=== PATIENT | male | born 1975 | race African-American/Black ===

== ENCOUNTER 2020-02-07 07:14 | Emergency (ER) | payer BC ==
[~2020-02-07] VITALS: Ht 167.6 cm; Wt 81.7 kg
[~2020-02-07 07:14] MED LIST: NOHOMEMEDICATIONS; PERCOCET 5-3251 EACH PO; PHENERGAN 25 MG25 M1 PO; PREDNISONE 20 M20 M1 PO; TAMSULOSIN HCL0.4 MG PO; VENTOLIN HFA 1818 GM INH
[2020-02-07 07:44] LABS: URINE BILIRUBIN NEGATIVE (Negative); URINE BLOOD 3+ (Negative); URINE CLARITY CLEAR; URINE COLOR YELLOW; URINE GLUCOSE-RANDOM* NEGATIVE (Negative); URINE KETONES NEGATIVE (Negative); URINE LEUKOCYTES-REFLEX NEGATIVE (Negative); URINE NITRITE-REFLEX NEGATIVE (Negative); URINE PROTEIN (DIPSTICK) NEGATIVE (Negative); URINE SPECIFIC GRAVITY 1.025 (1.005-1.035); URINE UROBILINOGEN 0.2 E.U./dl (0.2-1.0)
[2020-02-07 07:58] LABS: BACTERIA-REFLEX None Seen /HPF (None Seen); CASTS None Seen /LPF (None Seen); CRYSTALS None Seen /LPF (None Seen); SQUAMOUS None Seen /LPF (0-3); URINE WBC-REFLEX None Seen /HPF (0-5)
[2020-02-07 09:13] LABS: ABSOLUTE NEUTROPHILS 9.8 thou/uL (1.4-8.2); BASOPHILS 0.7 % (0.0-2.0); EOSINOPHILS 0.1 % (0.0-3.0); HEMATOCRIT 44.7 % (42.0-52.0); HEMOGLOBIN 14.5 gm/dL (14.0-18.0); LYMPHOCYTES 6.7 % (24.0-44.0); MCH 25.4 pg (26.0-34.0); MCHC 32.3 g/dL (28.0-37.0); MCV 78.5 fL (80.0-100.0); PLATELET COUNT 255 thou/uL (150-400); POLYS 86.5 % (36.0-66.0); RBC 5.69 mil/uL (4.50-6.00); WBC 11.3 thou/uL (4.0-11.0)
[2020-02-07 09:15] LABS: CALCIUM 9.5 mg/dL (8.5-10.1); CREATININE 1.4 mg/dL (0.7-1.3); POTASSIUM 4.5 mmol/L (3.5-5.1)
[2020-02-07 09:48] VITALS: BP 147/82
== END 2020-02-07 09:51 | disposition home or self-care (01) ==
LOC: ER 07:14
PROVIDERS: Emergency Medicine
DX: N20.0 Calculus of kidney (principal)